=== PATIENT | female | born 1980 | race Caucasian/White ===

== ENCOUNTER 2016-09-27 13:50 | Emergency (ER) | payer MEDICAID ==
[2016-09-27 13:59] VITALS: BP 108/74
== END 2016-09-27 15:37 | disposition home or self-care (01) ==
LOC: ED 13:50
DX: L95.9 Vasculitis limited to the skin, unspecified (principal); R21 Rash and other nonspecific skin eruption

== ENCOUNTER 2017-08-03 11:39 | Emergency (ER) | payer MEDICAID ==
[~2017-08-03] VITALS: Ht 162.6 cm; Wt 77.1 kg
[2017-08-03 11:45] VITALS: Ht 162.6 cm; Wt 77.1 kg
[2017-08-03 13:27] VITALS: BP 129/73
== END 2017-08-03 13:27 | disposition home or self-care (01) ==
LOC: ED 11:39
DX: S92.355A Nondisplaced fracture of fifth metatarsal bone, left foot, initial encounter for closed fracture (principal); X50.1XXA Overexertion from prolonged static or awkward postures, initial encounter; Y93.89 Activity, other specified; Y92.89 Other specified places as the place of occurrence of the external cause; Y99.8 Other external cause status
CPT/HCPCS: Q0092

== ENCOUNTER 2019-02-28 23:20 | Emergency (ER) | payer MEDICAID ==
[~2019-02-28] VITALS: Ht 152.4 cm; Wt 78.5 kg
[2019-02-28 23:24] VITALS: Ht 152.4 cm; Wt 78.5 kg
[2019-02-28 23:43] VITALS: BP 110/70
[2019-03-01 00:35] LABS: microscopic required? YES; urine erythrocyte 2+ (NEGATIVE)
== END 2019-02-28 23:43 | disposition home or self-care (01) ==
LOC: ED 23:20
PROVIDERS: Emergency Medicine
DX: N30.90 Cystitis, unspecified without hematuria (principal)